=== PATIENT | male | born 1955 | race Caucasian/White ===

== ENCOUNTER 2016-11-13 10:44 | Outpatient (CLI) | payer OTHER ==
--- NOTE | 2016-11-13 12:30 | DIAGNOSTIC IMAGING REPORT ---
PROCEDURE: US BILATERAL CAROTID DOPPLER INDICATION: RT CAROTID ARTERY STENOSIS TECHNIQUE: Color Doppler duplex imaging of the carotid and vertebral vessels. COMPARISON: None. FINDINGS: Right carotid system: Right internal carotid 50-69% stenosis. Left carotid system: Left internal carotid 5-15% stenosis Vertebral System: Antegrade vertebral artery flow bilaterally. Right common carotid artery peak systolic velocity 75 cm/second. Right internal carotid artery peak systolic velocity 172 cm/second. Right external carotid artery peak systolic velocity 129 cm/second. Right iznxjzkx-wk-tnuetv carotid artery ratio 2.3 Right vertebral artery peak systolic velocity 29 cm/second. Left common carotid artery peak systolic velocity 74 cm/second. Left internal carotid artery peak systolic velocity 93 cm/second. Left external carotid artery peak systolic velocity 130 cm/second. Left zjdonydu-ww-kncwsr carotid artery ratio 1.3 Left vertebral artery peak systolic velocity 54 cm/second. IMPRESSION: 1. Right internal carotid 50-69% stenosis. 2. Antegrade vertebral artery flow bilaterally. Velocity criteria are extrapolated from diameter data as defined by the Society of [employer] in Ultrasound Consensus Conference, Radiology 2003; 229; 340-346.
--- NOTE | 2016-11-13 12:30 | DIAGNOSTIC IMAGING REPORT ---
PROCEDURE: US BILATERAL CAROTID DOPPLER INDICATION: RT CAROTID ARTERY STENOSIS TECHNIQUE: Color Doppler duplex imaging of the carotid and vertebral vessels. COMPARISON: None. FINDINGS: Right carotid system: Right internal carotid 50-69% stenosis. Left carotid system: Left internal carotid 5-15% stenosis Vertebral System: Antegrade vertebral artery flow bilaterally. Right common carotid artery peak systolic velocity 75 cm/second. Right internal carotid artery peak systolic velocity 172 cm/second. Right external carotid artery peak systolic velocity 129 cm/second. Right ajywsssk-bw-njadrf carotid artery ratio 2.3 Right vertebral artery peak systolic velocity 29 cm/second. Left common carotid artery peak systolic velocity 74 cm/second. Left internal carotid artery peak systolic velocity 93 cm/second. Left external carotid artery peak systolic velocity 130 cm/second. Left nhqlwwih-ao-emuwzg carotid artery ratio 1.3 Left vertebral artery peak systolic velocity 54 cm/second. IMPRESSION: 1. Right internal carotid 50-69% stenosis. 2. Antegrade vertebral artery flow bilaterally. Velocity criteria are extrapolated from diameter data as defined by the [employer] of [employer]ologists in Ultrasound Consensus Conference, Radiology 2003; 229; 340-346.
== END 2016-11-13 23:00 ==
LOC: US SRH 10:44
DX: I65.21 Occlusion and stenosis of right carotid artery (principal)